=== PATIENT | female | born 1940 | race Caucasian/White ===

== ENCOUNTER 2018-02-02 17:24 | Outpatient (CLI) | payer MEDICARE | END 2018-02-02 17:25 | disposition critical access hospital (66) | LOC: EMS 17:24 | PROVIDERS: ATTEND Surgery | DX: S99.911A Unspecified injury of right ankle, initial encounter (principal); W10.8XXA Fall (on) (from) other stairs and steps, initial encounter; Y92.838 Other recreation area as the place of occurrence of the external cause | CPT/HCPCS: A0425; A0429 ==

== ENCOUNTER 2018-02-02 17:35 | Observation (INO) | payer MEDICARE ==
[2018-02-02] MEDS ORDERED: HYDROmorphone 1 MG/ML CARPUJECT IVP STA (17:58)
--- NOTE | 2018-02-02 18:00 | ED Physician Documentation ---
PD HPI LOWER EXT INJURY - Stated complaint Stated Complaint: FALL, R ANKLE PX - Chief complaint Chief Complaint: Trauma Ext - History obtained from History obtained from: Patient, Family - History of Present Illness PD HPI LOW EXT INJURY LOCATION: Right, Lower leg, Ankle Type of injury: Fall (down stairs) Where injury occurred: Home Timing - onset: How many minutes ago (30) Timing - duration: Minutes (30) Timing - details: Abrupt onset Pain level max: 9 Pain level now: 6 Improved by: Rest, Ice, Immobilization Worsened by: Moving, Palpating Associated symptoms: Swelling, Other (deformed). No: Weakness, Numbness, Tingling Contributing factors: No: Anticoagulated, Prior ortho surgery, Prosthetic joint , Work related Similar symptoms before: Has not had sx before Recently seen: Not recently seen Review of Systems Ten Systems: 10 systems reviewed and negative Constitutional: denies: Fever, Chills Ears: denies: Ear pain Nose: denies: Rhinorrhea / runny nose, Congestion Throat: denies: Sore throat Cardiac: denies: Chest pain / pressure Respiratory: denies: Cough GI: denies: Nausea, Vomiting, Diarrhea Skin: denies: Rash Musculoskeletal: denies: Neck pain, Back pain Neurologic: denies: Headache, Head injury, LOC PD PAST MEDICAL HISTORY - Past Medical History Past Medical History: Yes Cardiovascular: High cholesterol - Past Surgical History Past Surgical History: No - Present Medications Home Medications: Ambulatory Orders Medication Instructions Recorded Confirmed Atorvastatin [Lipitor] 02/02/18 - Allergies Allergies/Adverse Reactions: Allergies Allergy/AdvReac Type Severity Reaction Status Date / Time No Known Drug Allergies Allergy Verified 02/02/18 17:48 - Social History Does the pt smoke?: No Smoking Status: Never smoker Does the pt drink ETOH?: Yes Does the pt have substance abuse?: No - Immunizations Immunizations are current?: Yes PD ED PE NORMAL - Vitals Vital signs reviewed: Yes - General General: Alert and oriented X 3, No acute distress, Well developed/nourished - HEENT HEENT: Moist mucous membranes - Neck Neck: Supple, no meningeal sign - Cardiac Cardiac: RRR - Respiratory Respiratory: No respiratory distress, Clear bilaterally - Abdomen Abdomen: Soft, Non tender, Non distended - Back Back: No spinal TTP - Derm Derm: Warm and dry - Extremities Extremities: Other (gross deformity to the R ankle c/w fracture and dislocation. no open fracture. NVI. strong DP pulse. ) - Neuro Neuro: Alert and oriented X 3 - Psych Psych: Normal mood, Normal affect Results - Vitals Vitals: Vital Signs - 24 hr 02/02/18 02/02/18 02/02/18 17:46 19:44 19:45 Temperature 36.1 C L Heart Rate 89 81 80 Respiratory 15 18 12 Rate Blood Pressure 105/72 125/74 O2 Saturation 95 96 02/02/18 02/02/18 02/02/18 19:47 19:52 20:01 Temperature Heart Rate 77 67 76 Respiratory 14 14 16 Rate Blood Pressure 123/70 113/61 116/60 O2 Saturation 95 94 100 02/02/18 20:13 Temperature Heart Rate 77 Respiratory 18 Rate Blood Pressure 120/70 O2 Saturation 94 Oxygen O2 Source Room air - Rads (name of study) R ankle xray Radiology: Prelim report reviewed, EMP read contemporaneously, See rad report ( Trimalleolar fracture dislocation of the ankle. ) r tib fib xray Radiology: Prelim report reviewed, EMP read contemporaneously, See rad report ( Trimalleolar fracture dislocation of the ankle. ) post reduction ankle Radiology: Prelim report reviewed, EMP read contemporaneously, See rad report ( Interval placement of overlying cast status post reduction right ankle fracture dislocation. Alignment of the ankle is near-anatomic. 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 Pimentel -ortho) ED course: Patient is a 77-year-old female who presents to the emergency department with a right ankle trimalleolar fracture/dislocation. Discussed the case with orthopedics Dr. Pimentel, Who came and evaluated the patient in the emergency department. I provided sedation with propofol while he reduced the dislocation and fracture. She was placed in a molded plaster splint. Neurovascularly intact after splint application and reduction. She will be placed in observation overnight for compartment checks and pain control. This document was made in part using voice recognition software. While efforts are made to proofread this document, sound alike and grammatical errors may occur. - Sepsis Event Vital Signs: Vital Signs - 24 hr 02/02/18 02/02/18 02/02/18 17:46 19:44 19:45 Temperature 36.1 C L Heart Rate 89 81 80 Respiratory 15 18 12 Rate Blood Pressure 105/72 125/74 O2 Saturation 95 96 02/02/18 02/02/18 02/02/18 19:47 19:52 20:01 Temperature Heart Rate 77 67 76 Respiratory 14 14 16 Rate Blood Pressure 123/70 113/61 116/60 O2 Saturation 95 94 100 02/02/18 20:13 Temperature Heart Rate 77 Respiratory 18 Rate Blood Pressure 120/70 O2 Saturation 94 Oxygen O2 Source Room air Departure - Departure Disposition: ED Place in Observation Clinical Impression: Trimalleolar fracture Qualifiers: Encounter type: initial encounter Fracture type: closed Laterality: right Qualified Code(s): S82.851A - Displaced trimalleolar fracture of right lower leg , initial encounter for closed fracture Dislocation, ankle Qualifiers: Encounter type: initial encounter Laterality: right Qualified Code(s): S93.04XA - Dislocation of right ankle joint, initial encounter Condition: Stable Discharge Date/Time: 02/02/18 21:08
--- NOTE | 2018-02-02 18:59 | XRAY Report ---
Procedure Date: 02/02/2018 Accession Number: [id number] / [id number] Procedure: XR - Tib/Fib RT CPT Code: FULL RESULT: EXAM: RIGHT TIBIA/FIBULA RADIOGRAPHY. EXAM DATE: 02/02/2018 06:46 PM. CLINICAL HISTORY: Fall today. Pain and swelling. COMPARISON: None. TECHNIQUE: 3 views. FINDINGS: Bones: Trimalleolar fracture dislocation of the ankle with complete disruption of the ankle mortise. Joints: Normal right knee. Soft Tissues: Moderate edema lower leg and ankle. IMPRESSION: Trimalleolar fracture dislocation of the ankle. RADIA
--- NOTE | 2018-02-02 19:31 | XRAY Report ---
Procedure Date: 02/02/2018 Accession Number: [id number] / [id number] Procedure: XR - Ankle 2 View RT CPT Code: FULL RESULT: EXAM: RIGHT ANKLE RADIOGRAPHY EXAM DATE: 02/02/2018 06:54 PM. CLINICAL HISTORY: FALL, ANKLE PAIN AND DEFORMITY. COMPARISON: None. TECHNIQUE: 3 views. FINDINGS: Bones: There is comminuted fracture through the distal fibula and above the level of the syndesmosis. There is displaced fracture through the medial malleolus which is transversely oriented and since at the medial margin of the tibial plateau. There is displaced fracture through the posterior malleolus. Joints: There is lateral dislocation through the tibiotalar joint. Soft Tissues: No unexpected soft tissue findings. IMPRESSION: Montel[place] B fracture dislocation through the right ankle as above. RADIA
[2018-02-02] MEDS ORDERED: PROPOFOL 200 MG/20 ML VIAL IVP ONE (19:36)
[2018-02-02] MEDS ORDERED: SODIUM CHLORIDE FLUSH 0.9% 10 ML SYRINGE IVP PRN (20:30)
--- NOTE | 2018-02-02 20:47 | XRAY Report ---
Procedure Date: 02/02/2018 Accession Number: [id number] / [id number] Procedure: XR - Ankle 3 View RT CPT Code: FULL RESULT: EXAM: RIGHT ANKLE RADIOGRAPHY EXAM DATE: 02/02/2018 08:05 PM. CLINICAL HISTORY: S/p reduction. COMPARISON: ANKLE 3 VIEW RT 02/02/2018. TECHNIQUE: 3 views. FINDINGS: Interval placement overlying cast status post reduction right ankle fracture dislocation. Alignment of the ankle is near anatomic. No new abnormalities are seen. IMPRESSION: Interval placement overlying cast status post reduction right ankle fracture dislocation. Alignment of the ankle is near anatomic. No new abnormalities are seen. RADIA
[2018-02-02] MEDS: ACETAMINOPHEN 500 MG TABLET PO PRN (21:19)
[2018-02-02] MEDS: SODIUM CHLORIDE FLUSH 0.9% 10 ML SYRINGE IVP SCH (23:44)
[2018-02-03] MEDS: oxyCODONE 5 MG TABLET PO PRN ×3 (02:26→13:08)
--- NOTE | 2018-02-03 02:56 | CONSULTATION NOTE ---
DATE OF SERVICE: 02/02/2018 Physician: Darius Melgar MD CHIEF COMPLAINT: Asked to evaluate patient in the emergency room by Daen Montes MD. CONSULTATION REQUESTED BY: Dean Montes MD, for right ankle fracture dislocation, closed. HISTORY OF PRESENT ILLNESS: Patient is an active, 77-year-old female visiting from out of town with friends. She injured her right ankle while walking down the stairs in hiking boot. She twisted her ankle, realized it was out of shape and ultimately was brought into the emergency room by EMS. Ortho pedic consultation was sought. The patient has a history of fracture dislocation of the ankle. Patient is seen with her friend, Ev, at the bedside. Patient reports being relatively comfortabl e if she does not move the ankle. She points to the right ankle, where she does have some mild pain and deformity. She denies other traumatic complaints at this time. She has no other previous histor y of right ankle issues. PAST MEDICAL HISTORY: Hypercholesterolemia. PAST SURGICAL HISTORY: None noted in EMR. MEDICATIONS: Atorvastatin 10 mg daily. ALLERGIES: NO KNOWN DRUG ALLERGIES. REVIEW OF SYSTEMS: A 14-point review of systems is negative other than for that noted. FAMILY HISTORY: Not obtained. PHYSICAL EXAMINATION GENERAL: Patient is a well-developed, well-nourished, 77-year-old female in no acute distress. She is cooperative with the examination. HEAD AND NECK: Normocephalic, atraumatic. EXTREMITIES: Patient's right lower extremity is noted to have a deformed ankle, with the ankle in re lative eversion/abduction relative to the proximal aspect. There is a small abrasion proximal and me dial to the medial malleolus. This is away from the bony prominence. This was examined and noted to be superficial and less than 3 x 3 mm. No penetration appreciated here. No bleeding noted here. N o other skin violation noted. The skin is somewhat tented towards the medial malleolus, as the major ity of the foot is further lateral. Please see procedure note under separate cover. Foot compartments and calf compartments are soft. There is minimal foot and ankle swelling. There i s palpable dorsalis pedis. Patient has sensation intact throughout the foot and ankle, plantar, dors um, medial and lateral borders as well as the toes and first webspace. She remains comfortable, able to move her toes comfortably with unchanged neurovascular status distally postprocedure. X-RAY EXAMINATION: Patient had pre- and postreduction films which show a fracture-dislocation which is a trimalleolar fracture. It involved a large medial malleolus fragment and a somewhat smaller pos terior malleolar fragment and a comminuted lateral malleolus fracture. Prereduction shows lateral di slocation of its posterior component and postreduction film shows that the talus is underneath the an kle mortise with good clear space equal across the talotibial joint. The medial malleolus remains st ill somewhat displaced. The lateral view shows that the talus is underneath the tibia. Please see r adiograph final report for further details. ASSESSMENT AND PLAN: Patient is a 77-year-old female with a right ankle trimalleolar fracture disloc ation, closed. We did discuss the potential for short-term and long-term problems with this injury with and without surgery. We talked about the natural history and relevant literature. We talked about the examinati on which does not suggest an open injury, though this is considered. I have recommended operative in tervention and the rationale for that is reviewed. We talked about timing for that and offered opera tive intervention today, which I think is reasonable given the minimal swelling at this point and the good reduction. Patient does live out of town and has better support near where she lives elsewhere in [place]. After a discussion of the pros and cons, she would like to pursue treatment elsewher e. That said, we did discuss the potential for fracture blisters and other skin complications, as we ll as other potential complications with her injury. We talked about potential prolonged course and potential delays that may be necessary, depending on her soft tissues. In the meantime, she reports being comfortable in the splint and will be admitted for observation for neurovascular checks, pain c ontrol and vital sign checks. We will have her elevate her right lower extremity and keep the splint clean, dry and intact. She would stay nonweightbearing. She would use a walker with assistance and assist device as needed. We will have Physical Therapy train her with that tomorrow and then, per h er preference, she would be discharged with the plan for care at an institutional hospital with an or thopedist closer to her home. Patient's and her friend's questions were answered. We also spoke to her on the phone. His questions were answered, and verbalized understanding and agreement with the plan as outlined. We wo uld see her in the morning or sooner as needed and then plan for discharge as above. This would be p ending successful physical therapy or demonstration of safe ambulation and transfers for home setting . TD: 02/02/2018 21:20
--- NOTE | 2018-02-03 06:55 | PROCEDURE REPORT ---
DATE OF SERVICE: 02/02/2018 Physician: Darius Melgar MD PREPROCEDURE DIAGNOSIS: Closed right trimalleolar fracture dislocation of ankle. POSTPROCEDURE DIAGNOSIS: Closed right trimalleolar fracture dislocation of ankle. PROCEDURE: Right ankle closed reduction and splinting of fracture dislocation. PROCEDURAL INDICATIONS: A comminuted displaced dislocated right ankle fracture dislocation. INTRAPROCEDURAL COMPLICATIONS: None noted. The patient and the patient's friend, Ev, had the injury discussed. We discussed risks, benefits and alternatives of the procedure proposed. We talked about potential risks of her injury, as well as other procedure including but not limited to further injury to nerve or blood vessel injury, worse presley of her condition, failure to "cure" problem, need for additional procedures, iatrogenic injury. We talked about the fact that there are other risks not addressed her and that she would most certai nly need definitive treatment. She verbalized understanding of the above, verbalized the risks of th e procedure. Informed consent was given. ANESTHESIA: Per Dean Montes MD, with conscious sedation. Please see dictation under separate co usama. PROCEDURE IN DETAIL: After informed consent was given, patient is adequately sedated with conscious sedation per Dr. Montes. The patient's right ankle is identified as the appropriate procedure, site and, after adequate sedation, the patient has traction, inversion and anterior drawer maneuver perfor med with the ankle, which easily reduces as there is adequate relaxation. This is held by the assist ant as soft roll padding is placed circumferentially to appropriately pad bony prominences. At this point, a well-padded and well-molded plaster splint is applied and ultimately an Zachariah wrap is applied without point finger pressure, but with broad surfaces. The reduction is maintained with anterior dr awbarbara and inversion while molding the splint as it hardens. Once adequately hardened, the patient is awakened and noted to be awake and alert. She reports being comfortable in the new splint and remain s neurovascularly unchanged distally. She is given post splinting instructions. TD: 02/02/2018 21:18
--- NOTE | 2018-02-03 08:10 | Discharge Plan ---
Discharge Plan Disposition: 01 Home, Self Care Diet: Regular Activity Restrictions: non weight bearing RLE, assist device/assist prn Shower Restrictions: Yes (keep splint dry/clean) Assistance Devices: Crutches (crutches or walker with assist for amb, pending PT will follow-up with orthopedist in home town/near home per preference, recommend visit <3days) No Smoking: If you smoke, Please STOP! Call for help. Follow-up with: Provider,Other [Primary Care Provider] -
[2018-02-03 08:33] VITALS: BP 114/47
[2018-02-03] MEDS ORDERED: POLYETHYLENE GLYCOL 3350 17 GM PACKET PO SCH (09:00)
[2018-02-03] MEDS: ACETAMINOPHEN 500 MG TABLET PO PRN (09:13)
[2018-02-03] MEDS: SODIUM CHLORIDE FLUSH 0.9% 10 ML SYRINGE IVP SCH (09:14)
== END 2018-02-03 13:31 | disposition home or self-care (01) ==
LOC: ED 17:35 → MS2 20:31
PROVIDERS: ADMIT Orthopaedic Surgery Sports Medicine; ATTEND Orthopaedic Surgery Sports Medicine
DX: S82.851A Displaced trimalleolar fracture of right lower leg, initial encounter for closed fracture (principal); W10.8XXA Fall (on) (from) other stairs and steps, initial encounter; Y92.008 Other place in unspecified non-institutional (private) residence as the place of occurrence of the external cause
CPT/HCPCS: 27818; 73590; 73600; 73610; 94770; 96374; 97162; 97530; 99152; 99284; A9270; G0378; J1170